=== PATIENT | female | born 1945 | race Caucasian/White ===

== ENCOUNTER → 2016-09-03 | Outpatient (CLI) | payer MEDICARE, BC ==
[~2016-09-03] MED LIST: ASA325 MG PO; CALTRATE-600 D600 MG PO; CENTRUM SILVER1 EAC1 PO; CLARITIN DPS10 MG PO; ESTRADIOL1 MG PO; MILK OF MAGNESI10 ML PO; NASACORT AQ D16.5 GM NS; NORCO 7.5-3251 EACH PO; PRESERVISION A1 EAC2 PO; PROTONIX40 MG PO; RHINOCORT AQUA8.6 GM MS; SENOKOT S1 TAB PO; VISTARIL50 MG PO; VITAMIN B-121000 MCG PO; ZESTORETIC 20/11 TAB PO; [UNRECOGNIZED DRUG - OTHER] PO
== END | disposition home or self-care (01) ==
LOC: RAD.S 14:16
DX: N95.0 Postmenopausal bleeding (principal); N85.2 Hypertrophy of uterus